=== PATIENT | male | born 1955 | race African-American/Black ===

== ENCOUNTER 2018-03-17 14:32 | Inpatient (IN) | payer OTHER ==
--- NOTE | 2018-03-17 15:22 | PDOC ---
Attending Attestation - Medical Decision Making 03/17/18 17:[address] Monaco at 5:13 pm, case discussed with Dr. Monaco. Call placed to Dr. Vines at 5:23, waiting for a call back. 03/17/18 17:[address] Vines at 5:48 pm. <Vidya Marie - Last Filed: 03/17/18 17:48> - Resident Resident Name: Power Ashton - ED Attending Attestation I have performed the following: I have examined & evaluated the patient, The case was reviewed & discussed with the resident, I agree w/resident's findings & plan, Exceptions are as noted - HPI HPI: 03/17/18 15:28 62y m hx of HTN, on methadon 60mg daily presents from EMS for complaint of AMS possible sp fall. Uncelar history - per EMS, pt was found face down i his apt, called by a neighbor but they didnt stick around to give a formal story to EMS. Per EMS pt was alitlte altered on their arrival and pt was noted slightly tachycardic. HR improved with approx 200-300cc of fluids. BGM was normal per EMS. Per patient states that he was going to his friend's house and syncopized. He denies prior headache, chest pain, shortness of breath, palpitations, nausea, vomiting, abdominal pain, back pain, neck pain, dysuria, hematuria, diarrhea, melena, BPR. The patient states he currently feels okay GENERAL: The patient is awake, alert, oriented 1 HEAD: Normocephalic, atraumatic. EYES: extraocular movements intact, sclera anicteric, conjunctiva clear. ENT: Normal voice, dry mucous membranes. NECK: Normal range of motion, supple LUNGS: Breath sounds equal, clear to auscultation bilaterally. No wheezes, no rhonchi, no rales. HEART: Regular rate and rhythm, normal S1 and S2 without murmur, rub or gallop. ABDOMEN: Soft, nontender, normoactive bowel sounds. No guarding, no rebound. . No CVA tenderness EXTREMITIES: Normal range of motion, no edema. No clubbing or cyanosis. No cords, erythema, or tenderness. NEUROLOGICAL: No facial assymetry, Normal speech, PSYCH: Normal mood, normal affect. SKIN: hot to touch, Dry, normal turgor, Differential for the patient's symptoms includes possible ICH, intoxication, occult infection, anemia, metabolic derangements Will obtain blood work, CT head, EKG, UA, chest x-ray Will reassess Consider possible observation for further management of his syncope Patient is currently AO times one unclear what his baseline mental status is - Physicial Exam PE: 03/21/18 09:39 see above - Medical Decision Making pts labs were reviewed noted for mild prrenal azotemia -- will hydrate the pt. ct head negative will place in observation for AMS <Danny Bronson - Last Filed: 03/21/18 11:13> Heart Score/ECG Review - ECG Impressions Comment:: 03/17/18 16:20 Twelve-lead EKG was performed and reviewed by me. There is normal sinus rhythm with a normal rate. Rate of 91 The axis is normal. The intervals are normal. There is normal R wave progression T wave flattening in the inferolateral leads <Danny Bronson - Last Filed: 03/21/18 11:13>
--- NOTE | 2018-03-17 15:56 | PDOC ---
History of Present Illness - General Chief Complaint: Injury Stated Complaint: FALL Time Seen by Provider: 03/17/18 14:43 - History of Present Illness Initial Comments: 03/17/18 16:26 62 yo M w a hx of HTN was brought here by EMS. The story goes that the patient was found face down in his apartment complex. When he arrived in the ED he was altered and not aware which city he was in, which hospital, or what room in the hospital. He was clearly experiencing AMS. He says when he fell he did not hit his head or experience any LOC. He denies taking blood thinners. He says he is not currently in any pain and doesn't feel the need to be in the hospital. Denies chest pain, SOB, or difficulty breathing. Denies recent fevers, chills or infections. Denies abdominal kidd, dysuria, frequency, urgency, diarrhea, constipation. Patient states the only medication he takes is methadone. 03/17/18 16:31 03/17/18 16:36 03/17/18 16:52 Past History - Past Medical History Allergies/Adverse Reactions: Allergies Allergy/AdvReac Type Severity Reaction Status Date / Time No Known Allergies Allergy Verified 03/17/18 14:50 Home Medications: Ambulatory Orders Methadone [Dolophine -] 30 mg PO DAILY 03/17/18 COPD: No Other medical history: methadone program - Suicide/Smoking/Psychosocial Hx Smoking History: Current every day smoker Information on smoking cessation initiated: No Review of Systems - Review of Systems Comments:: 03/17/18 16:51 Patient is altered and cannot be sure the information he reports is accurate. CONSTITUTIONAL: Absent: fever, chills, diaphoresis, generalized weakness, malaise, loss of appetite HEENT: Absent: rhinorrhea, nasal congestion, throat pain, throat swelling, difficulty swallowing, mouth swelling, ear pain, eye pain, visual Changes CARDIOVASCULAR: Absent: chest pain, syncope, palpitations, irregular heart rate, lightheadedness , peripheral edema RESPIRATORY: Absent: cough, shortness of breath, dyspnea with exertion, orthopnea, wheezing, stridor, hemoptysis GASTROINTESTINAL: Absent: abdominal pain, abdominal distension, nausea, vomiting, diarrhea, constipation, melena, hematochezia GENITOURINARY: Absent: dysuria, frequency, urgency, hesitancy, hematuria, flank pain, genital pain MUSCULOSKELETAL: Absent: myalgia, arthralgia, joint swelling SKIN: Absent: rash, itching, pallor HEMATOLOGIC/IMMUNOLOGIC: Absent: easy bleeding, easy bruising, lymphadenopathy, frequent infections ENDOCRINE: Absent: unexplained weight gain, unexplained weight loss, heat intolerance, cold intolerance NEUROLOGIC: Present: mental status changes. Absent: headache, focal weakness or paresthesias, dizziness, unsteady gait, seizure, bladder or bowel incontinence PSYCHIATRIC: Absent: anxiety, depression, suicidal or homicidal ideation, hallucinations. *Physical Exam - Vital Signs Last Vital Signs Temp Pulse Resp BP Pulse Ox 96 H 14 122/77 97 03/17/18 14:33 03/17/18 14:33 03/17/18 14:33 03/17/18 14:33 - Physical Exam Comments: 03/17/18 16:53 GENERAL: Patient is lying in the bed comfortably and appears calm. He is not well kept and has a fowl odor. HEENT: Normocephalic, atraumatic. PERRLA, EOMI. NECK: Supple. Full ROM. No JVD. CARDIOVASCULAR: Regular rate and rhythm. No murmurs, rubs, or gallops. Distal pulses are 2+ and symmetric. PULMONARY: No evidence of respiratory distress. Lungs clear to auscultation bilaterally. No wheezing, rales or rhonchi. ABDOMINAL: Soft. Non-tender. mild distention. No rebound or guarding. No organomegaly. Normoactive bowel sounds. MUSCULOSKELETAL Normal range of motion at all joints. No bony deformities or tenderness. No CVA tenderness. EXTREMITIES: No cyanosis. No clubbing. No edema. No calf tenderness. SKIN: There is evidence of prior varicose veins on the R leg. Warm and dry. Normal capillary refill. No jaundice. NEUROLOGICAL: Patient is altered. Speech is slurred and difficult to understand. He is A&O x2. Does not know the month or where he is. Cranial nerves 2-12 grossly intact. No deficits to light touch in face, upper extremities and lower extremities. No motor deficits in the in face, upper extremities and lower extremities. Normoreflexic in the upper and lower extremities. Toes are down-going bilaterally. PSYCHIATRIC: Cooperative. Poor eye contact. Patient has a dull and apathetic affect. ED Treatment Course - LABORATORY CBC & Chemistry Diagram: 03/17/18 15:55 03/17/18 15:55 Medical Decision Making - Medical Decision Making 03/17/18 16:59 62 yo M w a hx of HTN was brought here by EMS after he fell down. He is altered here in the ED and it appears that he syncopized. He is not currently experiencing any pain and has no complaints. History is not very reliable. DD includes but not limited to: Syncope, dehydration, seizure, Drug overdose, CVA, alcohol intoxication. Plan: Labs, urine, CXR, Ekg, CT, Fluids, re-assess. Labs are significant for a pre-renal azotemia. Giving patient 100 ml/hr. Head CT showed no acute bleed or pathology. CXR unremarkable. Ekg showed no long QT, brugada, or wellen. Consulted Dr. Parks who is in agreement with patient management. Will admit patient to Obs for syncope. 03/17/18 17:06 03/17/18 17:09 03/17/18 17:13 03/17/18 17:20 03/18/18 08:38 *DC/Admit/Observation/Transfer Diagnosis at time of Disposition: Syncope, Prerenal azotemia - Discharge Dispostion Condition at time of disposition: Guarded Decision to Admit order: Yes - Referrals - Patient Instructions - Post Discharge Activity
[2018-03-17 16:21] LABS: BASO % 0.6 % (0-2.0); EOS % 2.7 % (0-4.5); HEMATOCRIT 30.2 % (35.4-49); HEMOGLOBIN 9.9 GM/dL (11.7-16.9); LYMPH % 20.6 % (8-40); MCH 27.4 pg (25.7-33.7); MCHC 32.7 g/dl (32.0-35.9); MEAN CELL VOLUME 83.8 fl (80-96); MEAN PLT VOLUME 8.5 fl (7.5-11.1); MONO % 7.4 % (3.8-10.2); NEUT % 68.7 % (42.8-82.8); PLATELET COUNT 187 K/MM3 (134-434); RBC 3.61 M/mm3 (4.00-5.60); RDW 15.9 % (11.9-15.9); WHITE BLOOD COUNT 7.9 K/mm3 (4.0-10.0)
[2018-03-17 16:51] LABS: INR 1.08 (0.83-1.09); PROTHROMBIN TIME (PATIENT) 12.2 SEC (9.7-13.0)
[2018-03-17 16:54] LABS: ALBUMIN 3.2 g/dl (3.4-5.0); ALK PHOS 68 U/L (45-117); ANION GAP 7 MMOL/L (8-16); BILIRUBIN,TOTAL 0.2 mg/dL (0.2-1); BLOOD UREA NITROGEN 30 mg/dL (7-18); CALCIUM 8.4 mg/dL (8.5-10.1); CHLORIDE 111 mmol/L (98-107); CO2 28 mmol/L (21-32); CREATININE 1.5 mg/dL (0.55-1.3); GLUCOSE,RANDOM 109 mg/dL (74-106); POTASSIUM 3.8 mmol/L (3.5-5.1); SGOT/AST 22 U/L (15-37); SGPT/ALT 15 U/L (13-61); SODIUM 145 mmol/L (136-145); TOT PROT 6.6 g/dl (6.4-8.2)
[2018-03-17] MEDS ORDERED: SODIUM CHLORIDE 1,000 ML IV ONE (17:04)
[2018-03-17] MEDS: SODIUM CHLORIDE 1,000 ML IV SCH (17:16)
[2018-03-17 23:16] VITALS: BMI 25.6
[2018-03-18] MEDS: SODIUM CHLORIDE 1,000 ML IV SCH ×2 (10:05→20:34)
[2018-03-18 12:56] LABS: URINE APPEARANCE CLEAR; URINE BILIRUBIN NEGATIVE (<2.0 mg/dL); URINE COLOR YELLOW; URINE GLUCOSE (UA) NEGATIVE (NEGATIVE); URINE KETONE NEGATIVE (NEGATIVE); URINE LEUK ESTERASE NEGATIVE (NEGATIVE); URINE NITRITE NEGATIVE (NEGATIVE); URINE PROTEIN NEGATIVE (NEGATIVE); URINE UROBILINOGEN NEGATIVE mg/dL (0.2-1.0)
--- NOTE | 2018-03-18 13:11 | HP ---
Admitting History and Physical - Primary Care Physician PCP: Joann Monaco - Admission Chief Complaint: Found altered History of Present Illness: 62 yrs old man ex IV HEroine abuser on on Methadoone 60 mg daily , HTN non compliant with medication, patient was found altered at his friends home , patient is a poor historian usually walks with a cane says he took his Methadone at 6.30 am after taht , his freind gave gime to clonazepalm and Heroine he passed out while walking 911 was called , BIB EMS for evaluation on arrival patient was alert , hemodynamically stable no external trauma, U Tox + Methadon, Opites and Benzodiazapine consistent with patient history,m denies any focal pain, nausea, vomiting, head trauma, chest pain or SOB History Source: Patient Limitations to Obtaining History: No Limitations - Past Medical History 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 No: Aneurysm, Aortic Insufficiency Pulmonary: No: Bronchitis, Cancer, COPD, O2 Dependent Gastrointestinal: No: Constipation, Crohn's Disease, Diverticulitis, Diverticulosis Hepatobiliary: No: Cholelithiasis, Cholecystitis, Choledocholithiasis, Hepatitis A Heme/Onc: No: B12 Deficiency, Bleeding Disorder, Cancer - Smoking History Smoking history: Current every day smoker Home Medications - Allergies Allergies/Adverse Reactions: Allergies Allergy/AdvReac Type Severity Reaction Status Date / Time No Known Allergies Allergy Verified 03/17/18 14:50 - Home Medications Home Medications: Ambulatory Orders Methadone [Dolophine -] 30 mg PO DAILY 03/17/18 Family Disease History - Family Disease History Family History: Unremarkable Review of Systems - Review of Systems Constitutional: denies: Chills, Diaphoresis, Fever, Lethargy Eyes: denies: Blind Spots, Blurred Vision HENT: denies: Difficult Swallowing, Ear Discharge Neck: denies: Decreased ROM, Lumps, Pain on Movement Cardiovascular: denies: Chest Pain, Edema, Palpitations, Shortness of Breath Respiratory: denies: Cough, Exercise Intolerance, Hemoptysis Gastrointestinal: denies: Abdominal Pain, Constipation, Diarrhea, Dysphagia Musculoskeletal: denies: No Symptoms, Back Pain, Crepitus, Decreased ROM, Extremity Pain Neurological: reports: Change in LOC, Incoordination. denies: Change in Speech , Confusion, Dizziness Psychiatric: denies: Altered Sleep Pattern, Anxiety Physical Examination Vital Signs: Vital Signs Temperature 97.5 F L 03/18/18 08:15 Pulse Rate 73 03/18/18 08:15 Respiratory Rate 18 03/18/18 08:15 Blood Pressure 146/90 03/18/18 08:15 O2 Sat by Pulse Oximetry (%) 100 03/17/18 23:24 Constitutional: Yes: Well Nourished, No Distress Eyes: Yes: WNL, Conjunctiva Clear, EOM Intact HENT: Yes: WNL, Atraumatic, Normocephalic Neck: Yes: WNL, Supple, Trachea Midline. No: Decreased ROM, Lymphadenopathy, Rigid Cardiovascular: Yes: Regular Rate and Rhythm, S1 Respiratory: Yes: Regular, CTA Bilaterally Gastrointestinal: Yes: Normal Bowel Sounds, Soft Musculoskeletal: No: Back Pain, Joint Stiffness, Joint Swelling Extremities: No: Calf Tenderness, Cold, Cool Edema: Yes Edema: RUE: Trace, LLE: Trace Peripheral Pulses: Left Doralis Pedis: 1+, Right Dorsalis Pedis: 1+ Neurological: Yes: Alert, Oriented, Unsteady Gait. No: Aphasia, Asterixis ...Motor Strength: WNL, LUE, LLE, RUE, RLE Labs: CBC, BMP 03/17/18 15:55 03/17/18 15:55 Imaging - Results X-ray: Report Reviewed (Normal) EKG: Report Reviewed (NSR no acute St T chnages) Problem List - Problems (1) Altered mental state Assessment/Plan: Due to PSA Methadone, Heroine and Clonazepalm, normal CT Head X2, will F/U Neurology input Code(s): R41.82 - ALTERED MENTAL STATUS, UNSPECIFIED Qualifiers: Altered mental status type: stupor Qualified Code(s): R40.1 - Stupor (2) Narcotic dependence Assessment/Plan: On methadone program Code(s): F11.20 - OPIOID DEPENDENCE, UNCOMPLICATED (3) Rhabdomyolysis Assessment/Plan: improving Code(s): M62.82 - RHABDOMYOLYSIS (4) Prerenal azotemia Assessment/Plan: resolved Code(s): R79.89 - OTHER SPECIFIED ABNORMAL FINDINGS OF BLOOD CHEMISTRY
[2018-03-18 13:42] LABS: COCAINE, UR NEGATIVE ng/ml (CUTOFF=300); PHENCYCLIDINE,URINE NEGATIVE ng/ml (CUTOFF=25); URINE AMPHETAMINES NEGATIVE ng/ml (CUTOFF=500); URINE BARBITURATES NEGATIVE ng/ml (CUTOFF=200)
[2018-03-18 13:44] LABS: URINE BENZODIAZEPINES POSITIVE ng/ml (CUTOFF=200)
[2018-03-18 13:45] LABS: METHADONE, UR POSITIVE ng/ml (CUTOFF=300); OPIATES, URI POSITIVE ng/ml (CUTOFF=300)
[2018-03-18] MEDS ORDERED: METHADONE HCL 10 MG TABLET PO ONE (14:00)
[2018-03-18 15:13] LABS: MAGNESIUM 1.9 mg/dL (1.8-2.4)
--- NOTE | 2018-03-18 15:35 | EKG ---
Test Reason : Blood Pressure : / mmHG Vent. Rate : 091 BPM Atrial Rate : 091 BPM P-R Int : 146 ms QRS Dur : 092 ms QT Int : 366 ms P-R-T Axes : 014 004 039 degrees QTc Int : 450 ms NORMAL SINUS RHYTHM NONSPECIFIC T WAVE ABNORMALITY ABNORMAL ECG NO PREVIOUS ECGS AVAILABLE Confirmed by MD Inocencio, Dougie ([id number]) on 03/18/2018 3:35:42 PM Referred By: Confirmed By:Dougie Painter MD
[2018-03-18] MEDS: D5-1/2NS+10 MEQ KCL - 10 MEQ/1,000 ML INFUS.BAG IV SCH (15:49)
[2018-03-18] MEDS: ACETAMINOPHEN 325 MG TABLET (FP) PO PRN (18:45)
[2018-03-19] MEDS: D5-1/2NS+10 MEQ KCL - 10 MEQ/1,000 ML INFUS.BAG IV SCH ×2 (04:44→14:07)
[2018-03-19 08:43] LABS: ALBUMIN 3.1 g/dl (3.4-5.0); ALK PHOS 70 U/L (45-117); ANION GAP 8 MMOL/L (8-16); BILIRUBIN,TOTAL 0.6 mg/dL (0.2-1); BLOOD UREA NITROGEN 13 mg/dL (7-18); CALCIUM 8.6 mg/dL (8.5-10.1); CHLORIDE 109 mmol/L (98-107); CO2 28 mmol/L (21-32); CREATININE 1.1 mg/dL (0.55-1.3); GLUCOSE,RANDOM 86 mg/dL (74-106); POTASSIUM 4.3 mmol/L (3.5-5.1); SGOT/AST 16 U/L (15-37); SGPT/ALT 12 U/L (13-61); SODIUM 145 mmol/L (136-145); TOT PROT 6.7 g/dl (6.4-8.2)
--- NOTE | 2018-03-19 13:57 | PN ---
Progress Note, Physician Chief Complaint: no complaint of weakness more alert - Current Medication List Current Medications: Active Medications Acetaminophen (Tylenol -) 650 mg PO Q6H PRN PRN Reason: PAIN 7-10 Last Admin: 03/18/18 18:45 Dose: 650 mg Potassium Chloride/Dextrose/Sod Cl (D5-1/2ns+10 Meq Kcl -) 10 meq in 1,000 mls @ 100 mls/hr IV ASDIR JENNYFER Last Admin: 03/19/18 04:44 Dose: 100 mls/hr Methadone HCl (Dolophine -) 60 mg PO DAILY@0600 [facility] - Objective Vital Signs: Vital Signs Temperature 98.6 F 03/19/18 06:11 Pulse Rate 73 03/19/18 06:11 Respiratory Rate 20 03/19/18 06:11 Blood Pressure 146/106 03/19/18 06:11 O2 Sat by Pulse Oximetry (%) 100 03/18/18 21:00 Constitutional: Yes: Well Nourished, No Distress HEENT: Yes: WNL, Conjunctiva Clear, EOM Intac, WNL, Atraumatic, Normocephalic Neck: Yes: WNL, Supple, Trachea Midline. No: Decreased ROM, Lymphadenopathy, Rigid Cardiovascular: Yes: Regular Rate and Rhythm, S1 Respiratory: Yes: Regular, CTA Bilaterally Gastrointestinal: Yes: Normal Bowel Sounds, Soft Extremities: No: Calf Tenderness, Cold, Cool, Edema: RUE: Trace, LLE: Trace, Peripheral Pulses: Left Doralis Pedis: 1+, Right Dorsalis Pedis: 1+ Neurological: Yes: Alert, Oriented, Unsteady Gait. No: Aphasia, Asterixis.Motor Strength: WNL, LUE, LLE, RUE, RLE Labs: CBC, BMP 03/17/18 15:55 03/19/18 06:30 INR, PTT INR 1.08 (0.83-1.09) 03/17/18 15:55 Problem List - Problems (1) Altered mental state Assessment/Plan: Due to PSA Methadone, Heroine and Clonazepalm, normal CT Head X2, will F/U Neurology input Code(s): R41.82 - ALTERED MENTAL STATUS, UNSPECIFIED Qualifiers: Altered mental status type: stupor Qualified Code(s): R40.1 - Stupor (2) Narcotic dependence Assessment/Plan: On methadone program Code(s): F11.20 - OPIOID DEPENDENCE, UNCOMPLICATED (3) Prerenal azotemia Assessment/Plan: resolved Code(s): R79.89 - OTHER SPECIFIED ABNORMAL FINDINGS OF BLOOD CHEMISTRY (4) Rhabdomyolysis Assessment/Plan: improving Code(s): M62.82 - RHABDOMYOLYSIS
[2018-03-19] MEDS: METHADONE HCL 40 MG DISPERSABLE TABLET PO SCH (14:07)
[2018-03-20] MEDS: D5-1/2NS+10 MEQ KCL - 10 MEQ/1,000 ML INFUS.BAG IV SCH (00:18)
[2018-03-20] MEDS: METHADONE HCL 40 MG DISPERSABLE TABLET PO SCH (06:24)
--- NOTE | 2018-03-20 09:48 | CON.NEURO ---
Consult Consult Specialty:: Jasmyn Referred by:: Ed - History of Present Illness History of Present Illness: 62-year-old right-handed man with history of hypertension illicit drug usage on methadone presented to the emergency room by the ambulance after being found in his bathroom with the syncopal episode patient was found on the floor of the bathroom face down. No report of any seizure-like activity I interviewed the patient after he was admitted to the floor patient with no recurrence of the symptoms. 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 No: Aneurysm, Aortic Insufficiency Pulmonary: No: Bronchitis, Cancer, COPD, O2 Dependent Gastrointestinal: No: Constipation, Crohn's Disease, Diverticulitis, Diverticulosis Hepatobiliary: No: Cholelithiasis, Cholecystitis, Choledocholithiasis, Hepatitis A - Smoking History Smoking history: Current every day smoker Home Medications - Allergies Allergies/Adverse Reactions: Allergies Allergy/AdvReac Type Severity Reaction Status Date / Time No Known Allergies Allergy Verified 03/17/18 14:50 - Home Medications Home Medications: Ambulatory Orders Methadone [Dolophine -] 30 mg PO DAILY 03/17/18 Physical Exam-Neuro Vital Signs: Vital Signs Temperature 98.0 F 03/20/18 06:00 Pulse Rate 71 03/20/18 06:00 Respiratory Rate 20 03/20/18 06:00 Blood Pressure 153/96 03/20/18 06:00 O2 Sat by Pulse Oximetry (%) 100 03/19/18 21:00 Labs: CBC, BMP 03/17/18 15:55 03/19/18 06:30 INR, PTT INR 1.08 (0.83-1.09) 03/17/18 15:55 - Neuro Exam Level Of Consciousness: Yes: Oriented to Person, Oriented to Place, Oriented to Time Eyes: Yes: PERRLA Speech: WNL Dominant Hand: Right Cranial Nerves II-XII Intact: Yes DTR's: 0 Right Tricep, 0 Left Brachioradialis, 0 Right Brachioradialis, 0 Left Achilles, 0 Right Achilles, 1+ Left Bicep, 1+ Right Bicep Response to light touch: Abnormal Response to pain prick: Abnormal Response to temperature: Abnormal Response to vibration: Abnormal Motor Strength: 3/5: Right Arm, Right Leg, Left Leg, Left Arm Gait: Deferred Imaging - Results Cat Scan: Image Reviewed Problem List - Problems (1) Syncope Assessment/Plan: questionable source syncope Rule out seizure Rule out cardiac arrhythmia 1. I ordered a repeat cardiac CAT scan of the head which showed no evidence of significant change 2. No need for MRI 3. Orthostatic checks 4. EEG Thank you for the kind referral Code(s): R55 - SYNCOPE AND COLLAPSE
--- NOTE | 2018-03-20 17:57 | ECHO ---
Name: JOSIANE CASTILLO Exam:Adult Echocardiogram Study Date: 03/20/2018 09:34 AM Age: 62 yrs Reason For Study: SYNCOPE Height: 73 in Weight: 194 lb BSA: 2.1 m2 MMode/2D Measurements & Calculations IVSd: 1.2 cm Ao root diam: 3.6 cm LVIDd: 4.2 cm LA dimension: 2.7 cm LVIDs: 2.7 cm LVPWd: 0.83 cm EDV(Teich): 80.5 ml LAV (MOD-bp): 35.8 ml ESV(Teich): 26.3 ml Doppler Measurements & Calculations MV V2 max: 85.5 cm/sec MV E max eriberto: 53.4 cm/sec MV max P.9 mmHg MV A max eriberto: 70.8 cm/sec MV V2 mean: 49.1 cm/sec MV E/A: 0.75 MV mean P.1 mmHg MV dec time: 0.27 sec MV V2 VTI: 22.1 cm TR max eriberto: 196.8 cm/sec Med Peak E' Eriberto: 6.2 cm/sec TR max P.5 mmHg Med E/e': 8.6 Lat Peak E' Eriberto: 10.2 cm/sec Lat E/e': 5.2 PI Vmax: 138.5 cm/sec Procedure The study was technically adequate with some images being suboptimal in quality. Left Ventricle The left ventricular size, thickness and function are normal. Ejection Fraction = 60-65%. Grade I evita stolic dysfunction, (abnormal relaxation pattern). Right Ventricle The right ventricle is normal in size and function. Atria Normal left and right atrial size and function. Mitral Valve The mitral valve is grossly normal. There is trace mitral regurgitation. Tricuspid Valve The tricuspid valve is normal. There is trace tricuspid regurgitation. There was insufficient TR dete cted to calculate RV systolic pressure. Aortic Valve The aortic valve opens well. The aortic valve is trileaflet. No aortic regurgitation is present. Pulmonic Valve The pulmonic valve is not well visualized. There is no pulmonic valvular regurgitation. Great Vessels The aortic root is normal size. Pericardium/Pleura There is no pericardial effusion. Interpretation Summary There is no comparison study available. The left ventricular size, thickness and function are normal The right ventricle is normal in size and function. There is trace tricuspid regurgitation. Ejection Fraction = 60-65%. There is trace mitral regurgitation. Mahendra Obrien MD 03/20/2018 05:56 PM
[2018-03-21] MEDS: METHADONE HCL 40 MG DISPERSABLE TABLET PO SCH (05:50)
--- NOTE | 2018-03-21 07:53 | PN ---
Progress Note, Physician Chief Complaint: no complaint of weakness more alert - Current Medication List Current Medications: Active Medications Acetaminophen (Tylenol -) 650 mg PO Q6H PRN PRN Reason: PAIN 7-10 Last Admin: 03/18/18 18:45 Dose: 650 mg Methadone HCl (Dolophine -) 60 mg PO DAILY@0600 JENNYFER Last Admin: 03/21/18 05:50 Dose: 60 mg - Objective Vital Signs: Vital Signs Constitutional: Yes: Well Nourished, No Distress HEENT: Yes: WNL, Conjunctiva Clear, EOM Intac, WNL, Atraumatic, Normocephalic Neck: Yes: WNL, Supple, Trachea Midline. No: Decreased ROM, Lymphadenopathy, Rigid Cardiovascular: Yes: Regular Rate and Rhythm, S1 Respiratory: Yes: Regular, CTA Bilaterally Gastrointestinal: Yes: Normal Bowel Sounds, Soft Extremities: No: Calf Tenderness, Cold, Cool, Edema: RUE: Trace, LLE: Trace, Peripheral Pulses: Left Doralis Pedis: 1+, Right Dorsalis Pedis: 1+ Neurological: Yes: Alert, Oriented, Unsteady Gait. No: Aphasia, Asterixis.Motor Strength: WNL, LUE, LLE, RUE, RLE Labs: CBC, BMP 03/17/18 15:55 03/19/18 06:30 INR, PTT INR 1.08 (0.83-1.09) 03/17/18 15:55 Problem List - Problems (1) Altered mental state Assessment/Plan: Due to PSA Methadone, Heroine and Clonazepalm, normal CT Head X2, will F/U Neurology input Code(s): R41.82 - ALTERED MENTAL STATUS, UNSPECIFIED Qualifiers: Altered mental status type: stupor Qualified Code(s): R40.1 - Stupor (2) Narcotic dependence Assessment/Plan: On methadone program Code(s): F11.20 - OPIOID DEPENDENCE, UNCOMPLICATED (3) Prerenal azotemia Assessment/Plan: resolved Code(s): R79.89 - OTHER SPECIFIED ABNORMAL FINDINGS OF BLOOD CHEMISTRY (4) Rhabdomyolysis Assessment/Plan: improving Code(s): M62.82 - RHABDOMYOLYSIS (5) HTN (hypertension) Assessment/Plan: Bp meds added and optimized Code(s): I10 - ESSENTIAL (PRIMARY) HYPERTENSION (6) Syncope Assessment/Plan: Patient present with Pseudosyncope due to PSA Code(s): R55 - SYNCOPE AND COLLAPSE (7) Polysubstance (excluding opioids) dependence Assessment/Plan: On Methadone program U Tox + for Opites and Benzodiazapine. Code(s): F19.20 - OTHER PSYCHOACTIVE SUBSTANCE DEPENDENCE, UNCOMPLICATED
--- NOTE | 2018-03-21 07:53 | PN ---
Progress Note, Physician Chief Complaint: no complaint of weakness more alert - Current Medication List Current Medications: Active Medications Acetaminophen (Tylenol -) 650 mg PO Q6H PRN PRN Reason: PAIN 7-10 Last Admin: 03/18/18 18:45 Dose: 650 mg Methadone HCl (Dolophine -) 60 mg PO DAILY@0600 JENNYFER Last Admin: 03/21/18 05:50 Dose: 60 mg - Objective Vital Signs: Vital Signs Temperature 98.3 F 03/21/18 06:00 Pulse Rate 73 03/21/18 06:00 Respiratory Rate 20 03/21/18 06:00 Blood Pressure 145/98 03/21/18 06:00 O2 Sat by Pulse Oximetry (%) 100 03/20/18 21:00 Constitutional: Yes: Well Nourished, No Distress HEENT: Yes: WNL, Conjunctiva Clear, EOM Intac, WNL, Atraumatic, Normocephalic Neck: Yes: WNL, Supple, Trachea Midline. No: Decreased ROM, Lymphadenopathy, Rigid Cardiovascular: Yes: Regular Rate and Rhythm, S1 Respiratory: Yes: Regular, CTA Bilaterally Gastrointestinal: Yes: Normal Bowel Sounds, Soft Extremities: No: Calf Tenderness, Cold, Cool, Edema: RUE: Trace, LLE: Trace, Peripheral Pulses: Left Doralis Pedis: 1+, Right Dorsalis Pedis: 1+ Neurological: Yes: Alert, Oriented, Unsteady Gait. No: Aphasia, Asterixis.Motor Strength: WNL, LUE, LLE, RUE, RLE Labs: CBC, BMP 03/17/18 15:55 03/19/18 06:30 INR, PTT INR 1.08 (0.83-1.09) 03/17/18 15:55 Problem List - Problems (1) Altered mental state Assessment/Plan: Due to PSA Methadone, Heroine and Clonazepalm, normal CT Head X2, will F/U Neurology input Code(s): R41.82 - ALTERED MENTAL STATUS, UNSPECIFIED Qualifiers: Altered mental status type: stupor Qualified Code(s): R40.1 - Stupor (2) Narcotic dependence Assessment/Plan: On methadone program Code(s): F11.20 - OPIOID DEPENDENCE, UNCOMPLICATED (3) Prerenal azotemia Assessment/Plan: resolved Code(s): R79.89 - OTHER SPECIFIED ABNORMAL FINDINGS OF BLOOD CHEMISTRY (4) Rhabdomyolysis Assessment/Plan: improving Code(s): M62.82 - RHABDOMYOLYSIS (5) HTN (hypertension) Assessment/Plan: Bp meds added and optimized Code(s): I10 - ESSENTIAL (PRIMARY) HYPERTENSION (6) Syncope Assessment/Plan: Patient present with Pseudosyncope due to PSA Code(s): R55 - SYNCOPE AND COLLAPSE
[2018-03-21 09:13] LABS: BASO % 0.5 % (0-2.0); EOS % 1.4 % (0-4.5); HEMATOCRIT 36.4 % (35.4-49); HEMOGLOBIN 11.4 GM/dL (11.7-16.9); LYMPH % 16.3 % (8-40); MCH 26.2 pg (25.7-33.7); MCHC 31.4 g/dl (32.0-35.9); MEAN CELL VOLUME 83.4 fl (80-96); MEAN PLT VOLUME 8.5 fl (7.5-11.1); MONO % 6.3 % (3.8-10.2); NEUT % 75.5 % (42.8-82.8); PLATELET COUNT 186 K/MM3 (134-434); RBC 4.36 M/mm3 (4.00-5.60); WHITE BLOOD COUNT 9.7 K/mm3 (4.0-10.0)
[2018-03-21 10:03] LABS: ANION GAP 8 MMOL/L (8-16); BLOOD UREA NITROGEN 13 mg/dL (7-18); CALCIUM 9.3 mg/dL (8.5-10.1); CHLORIDE 104 mmol/L (98-107); CO2 29 mmol/L (21-32); GLUCOSE,RANDOM 91 mg/dL (74-106); POTASSIUM 4.3 mmol/L (3.5-5.1); SODIUM 141 mmol/L (136-145)
[2018-03-21] MEDS ORDERED: LOSARTAN POTASSIUM 50 MG TABLET (FP) PO ONE (10:30)
[2018-03-21] MEDS: D5-1/2NS+10 MEQ KCL - 10 MEQ/1,000 ML INFUS.BAG IV SCH (11:03)
[2018-03-21] MEDS: amLODIPine BESYLATE 5 MG TABLET (FP) PO SCH (18:57)
[2018-03-21] MEDS: ACETAMINOPHEN 325 MG TABLET (FP) PO PRN (18:58)
--- NOTE | 2018-03-21 21:58 | CONS ---
DATE OF CONSULTATION: 03/21/2018 CONSULTATION REQUESTED BY: Joann Monaco MD CARDIOLOGY CONSULTATION CHIEF COMPLAINT: This 62-year-old male states that he must have lost consciousness and found himself in the hospital. He has no recollection of the event, but according to emergency room records, EMS found him in his apartment, apparently called by a neighbor. The patient had been a heroin addict and has been on methadone for several years. He states that he has had a poor appetite for 1 week and was barely eating and was not drinking enough fluids either. There is no history of chest pain or discomfort either at rest or with exertion. No history of exertional dyspnea, paroxysmal nocturnal dyspnea, or orthopnea reported. No history of palpitations. Denies having previous syncope. He states that he has hypertension, but has been taking no medications. There is no history of diabetes mellitus, no known history of heart murmur. PAST HISTORY: As mentioned in the history of present illness. SURGICAL HISTORY: Status post tonsillectomy. SOCIAL HISTORY: Single. Denies smoking or use of alcohol. No history of drug use reported. Previous history of heroin use. FAMILY HISTORY: Father at age 71 of a heart attack. Mother at age 69, apparently of cancer of the liver. He had 3 brothers, all of them are . The older brother of cancer, site uncertain, at the age of 70. Second brother in his sleep at age 69. Third brother had history of seizure disorder and at age 62. ALLERGIES: None reported. MEDICATIONS: 1. Amlodipine 5 mg p.o. daily. 2. Tylenol 650 mg p.o. every 6 hours p.r.n. 3. Methadone 60 mg p.o. daily. REVIEW OF SYSTEMS: Constitutional: No history of chills, fever, or night sweats. No history of unintentional weight loss. HEENT: History of left temporal headaches. No history of diplopia or blurred vision reported. No history of epistaxis or hoarseness. No history of tinnitus or deafness. Cardiovascular: No history of palpitations, chest pain, rheumatic fever, or known heart disease. Respiratory: No history of cough, expectoration, or hemoptysis. No history of tuberculosis. Gastrointestinal: No history of nausea, vomiting, melena, or hematemesis. History of umbilical colicky discomfort for 3 months and intermittent constipation. Neurologic: See history of present illness. Musculoskeletal: No history of myalgias. History of arthralgias involving the left knee. Genitourinary: He denies having dysuria, frequency, or hematuria. Hematologic: History of anemia, which he dates back to 1 year. No known history of bleeding, ecchymosis. PHYSICAL EXAMINATION: General: A 62-year-old alert gentleman who is in no distress. No pallor, cyanosis, clubbing, or jaundice. Vital Signs: Blood pressure 137/106 mmHg, pulse 71 beats/min, temperature 99.1 degrees Fahrenheit, respirations 20 per minute, oxygen saturation 100% on room air. Neck: Supple. No jugular venous distention. Carotids were 1+, upstrokes were normal. No bruits were heard and no thyromegaly was present. Heart: PMI was in the 5th intercostal space. No heaves or thrills. S1 and S2 were normal. Ejection systolic murmur, grade 1/6 was heard at the 2nd right intercostal space and again in early systole. No diastolic murmur or gallops were heard. Lungs: Clear on auscultation. Chest: Normal AP diameter, expansion was symmetrical. Abdomen: Soft, protuberant. No tenderness was elicited. There was no rebound tenderness. No hepatosplenomegaly or palpable masses were felt. Bowel sounds were present. Extremities: No calf tenderness or dependent edema. Pulses were equal. LABORATORY DATA: 1. CBC on March 17, 2018: WBC count 7900, hemoglobin 9.9 g, hematocrit 30.2%, platelet count 187,000. Repeat CBC on March 21, 2018: WBC count 9700, hemoglobin was 11.4 g, platelet count was 186,000; differential on March 21 was normal. 2. Chemistry on March 21: Sodium 141, potassium 4.3, chloride 104, CO2 of 22 mmol/L. On March 17, BUN was 30, creatinine was 1.5. Repeat BUN on March 21 was 13 and creatinine was 1.0. CK on March 17 was 528. On March 18, it was 322. Troponins were less than 0.02. 3. Lipid profile: Cholesterol 166, triglycerides 174, HDL cholesterol 60, LDL cholesterol 89 mg/dL. TSH was 2.86. INR was 1.08. X-ray chest, March 17, impression: No evidence of air space consolidation or pleural effusion. Carotid color flow Doppler impression: Normal carotid sonogram with no evidence of hemodynamically significant stenosis. CT of the head, on March 18, impression: No CT evidence of acute intracranial pathology. There has been no definite interval change in comparison to prior CT examination of March 17, 2018. ECG of March 17: Normal sinus rhythm, nonspecific T-wave abnormalities, abnormal ECG. No previous ECG available. Echocardiogram interpretation summary: 1. There is no comparison study available. Left ventricular size, thickness, and function are normal. 2. Right ventricle is normal in size and function. 3. There is trace tricuspid regurgitation. 4. Ejection fraction 60% to 65%. 5. Trace mitral regurgitation. IMPRESSION: 1. Syncope, etiology to be determined. A. Vasomotor. B. Related to dehydration. C. Substance abuse. 2. Hypertension, hypertensive cardiovascular disease, poorly controlled. 3. Low-grade fever, etiology to be determined. 4. Anemia, etiology to be determined. 5. History of umbilical discomfort and constipation, etiology of malignancies should be excluded. RECOMMENDATIONS: 1. Check blood pressure supine and standing. 2. Evaluation of anemia, abdominal discomfort, and constipation. 3. Patient will require further adjustment of antihypertensive therapy. 4. Serial blood cultures, urine culture, etc. 5. Close monitoring of temperature. PROGNOSIS: Guarded. Thank you for your referral. APRIL TINEO M.D. [id number]
[2018-03-22] MEDS: ACETAMINOPHEN 325 MG TABLET (FP) PO PRN (02:40)
[2018-03-22] MEDS: amLODIPine BESYLATE 5 MG TABLET (FP) PO SCH (03:14)
[2018-03-22] MEDS: METHADONE HCL 40 MG DISPERSABLE TABLET PO SCH (05:36)
[2018-03-22 07:08] LABS: BASO % 0.5 % (0-2.0); EOS % 2.3 % (0-4.5); HEMATOCRIT 36.4 % (35.4-49); HEMOGLOBIN 11.6 GM/dL (11.7-16.9); LYMPH % 15.9 % (8-40); MCH 26.5 pg (25.7-33.7); MCHC 31.9 g/dl (32.0-35.9); MEAN CELL VOLUME 83.1 fl (80-96); MEAN PLT VOLUME 8.5 fl (7.5-11.1); MONO % 7.1 % (3.8-10.2); NEUT % 74.2 % (42.8-82.8); PLATELET COUNT 194 K/MM3 (134-434); RBC 4.38 M/mm3 (4.00-5.60); WHITE BLOOD COUNT 9.3 K/mm3 (4.0-10.0)
[2018-03-22] MEDS ORDERED: amLODIPine BESYLATE 10 MG TABLET (FP) PO SCH (07:16)
--- NOTE | 2018-03-22 07:19 | DS ---
Physical Examination Vital Signs: Vital Signs Temperature 98.6 F 03/22/18 06:21 Pulse Rate 66 03/22/18 06:21 Respiratory Rate 20 03/22/18 06:21 Blood Pressure 151/94 03/22/18 06:21 O2 Sat by Pulse Oximetry (%) 100 03/21/18 21:00 Constitutional: Yes: Well Nourished, No Distress Eyes: Yes: WNL, Conjunctiva Clear, EOM Intact HENT: Yes: WNL, Atraumatic, Normocephalic Neck: Yes: WNL, Supple, Trachea Midline. No: Decreased ROM, Lymphadenopathy, Rigid Cardiovascular: Yes: Regular Rate and Rhythm, S1 Respiratory: Yes: Regular, CTA Bilaterally Gastrointestinal: Yes: Normal Bowel Sounds, Soft Musculoskeletal: No: Back Pain, Joint Stiffness, Joint Swelling Extremities: No: Calf Tenderness, Cold, Cool Edema: Yes Edema: RUE: Trace, LLE: Trace Peripheral Pulses: Left Doralis Pedis: 1+, Right Dorsalis Pedis: 1+ Neurological: Yes: Alert, Oriented, Unsteady Gait. No: Aphasia, Asterixis, .Motor Strength: WNL, LUE, LLE, RUE, RLE Discharge Summary Reason For Visit: PRERENAL AZOTEMIA, SYNCOPE Current Active Problems Altered mental state (Acute) Narcotic dependence (Acute) Prerenal azotemia (Acute) Rhabdomyolysis (Acute) Syncope (Acute) Uncontrolled HTN Hospital Course: 62 yrs old man ex IV HEroine abuser on on Methadoone 60 mg daily , HTN non compliant with medication, patient was found altered at his friends home , patient is a poor historian usually walks with a cane says he took his Methadone at 6.30 am after that , his freind gave gime to clonazepalm and Heroine he passed out while walking 911 was called , BIB EMS for evaluation on arrival patient was alert , hemodynamically stable no external trauma, U Tox + Methadon, Opites and Benzodiazapine consistent with patient history,m denies any focal pain, nausea, vomiting, head trauma, chest pain or SOB, patient developed AHI and Rhabdomyolysis that improved with IV Hydration, evaluated by Neurology and cardiology claered tp DC Home serial CT haed, ECHO, Carotid Doppler anad EKG are unremarkable, PT evaluted the patient clered to DC Home with home PT, BP meds added and optimized. Condition: Improved - Instructions - Home Medications Comprehensive Discharge Medication List: Ambulatory Orders Methadone [Dolophine -] 30 mg PO DAILY 03/17/18
[2018-03-22 07:27] LABS: ANION GAP 6 MMOL/L (8-16); BLOOD UREA NITROGEN 15 mg/dL (7-18); CALCIUM 8.9 mg/dL (8.5-10.1); CHLORIDE 105 mmol/L (98-107); CO2 29 mmol/L (21-32); GLUCOSE,RANDOM 97 mg/dL (74-106); POTASSIUM 4.1 mmol/L (3.5-5.1); SODIUM 140 mmol/L (136-145)
[2018-03-22 09:59] VITALS: PULSE 76; TEMP 98.7
[2018-03-22] MEDS ORDERED: LOSARTAN POTASSIUM 50 MG TABLET (FP) PO SCH (10:00)
[2018-03-22 11:04] VITALS: BP 165/93
== END 2018-03-22 14:06 | disposition home or self-care (01) | DRG 351 ==
LOC: JER 14:32 → JERBED 17:07 → J8W 20:32 → OBSVTOIN 03-22 08:00
PROVIDERS: ADMIT Internal Medicine; ATTEND Internal Medicine
DX: M62.82 Rhabdomyolysis (principal); R55 Syncope and collapse; R41.82 Altered mental status, unspecified; F11.20 Opioid dependence, uncomplicated; F19.20 Other psychoactive substance dependence, uncomplicated; R79.89 Other specified abnormal findings of blood chemistry; Z91.14 Patient's other noncompliance with medication regimen; D64.9 Anemia, unspecified; I11.9 Hypertensive heart disease without heart failure; R00.0 Tachycardia, unspecified
CPT/HCPCS: 36415; 70450-TC; 71045-TC-FY; 80048; 80053; 80061; 80307; 81003; 82550; 82553; 83721; 83735; 84443; 84484; 85025; 85610; 86850; 86900; 86901; 93005; 93010; 93306-TC; 93880-TC; 97116-GP; 97161-GP; 99283-25; G0378; J7030